=== PATIENT | male | born 1990 | race African-American/Black ===

== ENCOUNTER 2021-02-22 21:01 | Emergency (ER) | payer BC ==
[~2021-02-22] VITALS: Ht 195.6 cm; Wt 95.7 kg
[2021-02-22 21:25] VITALS: BP_SYST 159
[2021-02-22 21:47] VITALS: BP_SYST 159
== END 2021-02-22 21:47 | disposition home or self-care (01) ==
LOC: SED 21:01
DX: F07.81 Postconcussional syndrome (principal); R04.0 Epistaxis
CPT/HCPCS: 99281